=== PATIENT | male | born 1965 | race Caucasian/White ===

== ENCOUNTER 2021-01-04 14:04 | Emergency (ER) | payer BC ==
[2021-01-04 14:08] VITALS: TEMP 97.5
[2021-01-04] MEDS ORDERED: KETOROLAC 15 MG/ML 1 ML VIAL IVP STA (15:27)
[2021-01-04] MEDS ORDERED: SODIUM CHLORIDE 0.9% 1,000 ML IV ONE ×2 (15:27→15:29)
[2021-01-04] MEDS ORDERED: ACETAMINOPHEN TAB 500 MG TAB PO STA (15:29)
[2021-01-04 15:33] LABS: INR 0.9 (<1.2); Partial Thromboplastin Time 23.4 sec (22.0-30.0); Prothrombin Time 10.1 sec (9.0-12.0)
[2021-01-04 15:35] LABS: ALT 20 U/L (4-49); AST 31 U/L (17-59); African American GFR (CKD) >90 (>60 ml/min/1.73 sqM); Albumin 4.5 g/dL (3.5-5.0); Alkaline Phosphatase 51 U/L (38-126); Anion Gap 9 mmol/L; Blood Urea Nitrogen 12 mg/dL (9-20); Calcium 9.4 mg/dL (8.4-10.2); Carbon Dioxide 25 mmol/L (22-30); Chloride 101 mmol/L (98-107); Glucose 111 mg/dL (74-99); Non-African American GFR(CKD) >90 (>60 ml/min/1.73 sqM); Potassium 4.7 mmol/L (3.5-5.1); Sodium 135 mmol/L (137-145); Total Bilirubin 0.3 mg/dL (0.2-1.3); Total Protein 7.5 g/dL (6.3-8.2)
[2021-01-04 15:40] LABS: Basophils % (A) 1 %; Eosinophils # (A) 0.2 k/uL (0-0.7); Eosinophils % (A) 4 %; HCT 39.8 % (39.0-53.0); HGB 13.4 gm/dL (13.0-17.5); Lymphocytes # (A) 1.6 k/uL (1.0-4.8); Lymphocytes % (A) 33 %; MCH 32.2 pg (25.0-35.0); MCHC 33.6 g/dL (31.0-37.0); MCV 95.8 fL (80.0-100.0); Mean Platelet Volume 6.7; Monocytes # (A) 0.4 k/uL (0-1.0); Monocytes % (A) 9 %; Neutrophils # (A) 2.4 k/uL (1.3-7.7); Neutrophils % (A) 49 %; Platelet Count 416 k/uL (150-450); RBC 4.16 m/uL (4.30-5.90); RDW 12.9 % (11.5-15.5); WBC 4.9 k/uL (3.8-10.6)
--- NOTE | 2021-01-04 16:20 | XR ---
EXAMINATION TYPE: XR chest 1V portable DATE OF EXAM: 01/04/2021 COMPARISON: NONE HISTORY: Dizziness TECHNIQUE: FINDINGS: Heart and mediastinum are normal. Lungs are clear. Diaphragm is normal. Bony thorax is inta ct. There are chest leads. IMPRESSION: Normal chest
--- NOTE | 2021-01-04 16:36 | ED ---
General Adult HPI - General Chief complaint: Dizziness Stated complaint: Dizzy,Neck numbness Time Seen by Provider: 01/04/21 15:00 Source: patient, RN notes reviewed, old records reviewed Mode of arrival: wheelchair Limitations: no limitations - History of Present Illness Initial comments: Patient is a 55-year-old male with past medical history remarkable for no prior medical problems presents emergency Department complaining of acute onset of lightheadedness and suspected dehydration while at work earlier today. Patient states that he drank more coughing than normal and urinated frequently this morning. He has been working outside in the hot humid weather. He states that approximately 3 hours prior to arrival, the patient began having episodes of lightheadedness. Denies any chest pain or shortness of breath. Denies any abdominal pain, nausea, vomiting. Does endorse a very mild tension-like headache that feels like a belt tied around his head. He states this is approximately a 2 or 3 out of 10. He denies any fatigue or weakness. He states that the lightheadedness resolved mostly after he drank 2 glasses of water but was told to come to the emergency department for evaluation. He states he mostly feels back to his baseline. He denies any other acute complaint at this time. He denies any recent fevers, chills, sick contacts. States he did have 1 episode of loose stool earlier which is likely secondary to the coughing acc ording the patient. Was nonbloody. Has no other abdominal complaints at this time. - Related Data Previous Rx's Medication Instructions Recorded Ondansetron Odt [Zofran Odt] 8 mg PO Q8HR PRN #6 tab 08/11/15 Allergies Allergy/AdvReac Type Severity Reaction Status Date / Time prednisone Allergy c/o lower Verified 01/04/21 14:09 ext edema Review of Systems ROS Statement: Those systems with pertinent positive or pertinent negative responses have been documented in the HPI. Review of Systems: CONST: Denies fever EYES: Denies blurry vision ENT: Denies nasal congestion C/V: Denies Chest pain RESP: Denies shortness of breath GI: Denies abdominal pain : Denies dysuria SKIN: Denies rash. MSK: Denies joint pain. NEURO: Endorses headache ROS Other: All systems not noted in ROS Statement are negative. Past Medical History Past Medical History: No Reported History History of Any Multi-Drug Resistant Organisms: None Reported Past Surgical History: No Surgical Hx Reported Past Psychological History: No Psychological Hx Reported Smoking Status: Never smoker Past Alcohol Use History: None Reported Past Drug Use History: None Reported General Exam - General Exam Comments Initial Comments: General: Appears in no acute distress. HEAD: Normal with no signs of head trauma. EYES: PERRLA, EOMI, conjunctiva normal, no discharge. Pupils are 3 mm [place] aterally. ENT: Hearing grossly intact, normal oropharynx. Mildly dry mucous membrane. RESPIRATORY: Clear breath sounds bilaterally. No wheezes, rales, or rhonchi. C/V: Regular rate and rhythm. S1 and S2 auscultated, no edema, peripheral pulses 2+ and intact throughout ABD: Abd is soft, nontender, nondistended EXT: Normal range of motion, no obvious deformity SKIN: No rashes or lesions observed on exposed skin. NEURO: Alert and oriented x 4. Cranial nerves II-XII intact. No focal sensory or strength deficits. Cerebellar function is intact as evident by normal finger nose testing. Patient is able to ambulate without difficulty. GCS is 15. NIH scale is 0. Limitations: no limitations Course Vital Signs 01/04/21 01/04/21 14:05 16:49 Temperature 97.5 F L Pulse Rate 82 79 Respiratory 20 18 Rate Blood Pressure 148/93 129/79 O2 Sat by Pulse 99 99 Oximetry Medical Decision Making - Medical Decision Making Based on the patient's presentation and physical exam, I do believe that it was likely dehydrated, however cannot rule out the possibility of cardiac etiology at this time. He does have a mild tension-like headache with no neurological symptoms. He is still able to ambulate without difficulty. Therefore we will obtain a cardiac workup including troponin, EKG, chest x-ray. I believe one troponin was sufficient at this time as he presented multiple hours after symptom onset, and it is improving, and has never had chest pain. We also swabbed the patient for COVID as he did have an episode of diarrhea and it is the current COVID 19 pandemic. His no known sick contacts otherwise my suspicion is low. He was in agreement this plan. He will be symptomatically treated with 1 L fluid bolus as well as IV Toradol and by mouth Tylenol for pain management for his headache. He'll be connected to continuous cardiac biomarkers in the department. Patient's EKG shows no signs of acute ischemia. Patient's chest x-ray shows no acute cardiopulmonary process. COVID-19 swab is negative. Laboratory studies are remarkable for a negative troponin. The remainder of his labs are relatively unremarkable. On reevaluation, patient is feeling improved. His imaging without difficulty. States the lightheadedness is completely resolved as has his headache. He would like to go home at this time. Patient's heart sc ore's low therefore I do believe it is safe to discharge the patient home. I advised him to follow up with his PCP within the next 1-2 days. He was in agreement with the plan. I counseled the patient on proper hydration while at work and he expressed understanding. I instructed the patient to follow up with their PCP in the next 1-2 days . I explained that the patient should return to the emergency department if they experience any worsening symptoms. Strict return precautions were discussed with the patient. The patient expressed understanding of these instructions. I answer ed all questions that the patient had. The patient was discharged home in good condition with their prescriptions and follow up information. - Lab Data Result diagrams: 01/04/21 14:56 01/04/21 14:56 Lab Results 01/04/21 01/04/21 01/04/21 Range/Units 14:56 14:56 14:56 WBC 4.9 (3.8-10.6) k/uL RBC 4.16 L (4.30-5.90) m/uL Hgb 13.4 (13.0-17.5) gm/dL Hct 39.8 (39.0-53.0) % MCV 95.8 (80.0-100.0) fL MCH 32.2 (25.0-35.0) pg MCHC 33.6 (31.0-37.0) g/dL RDW 12.9 (11.5-15.5) % Plt Count 416 (150-450) k/uL MPV 6.7 Neutrophils % 49 % Lymphocytes % 33 % Monocytes % 9 % Eosinophils % 4 % Basophils % 1 % Neutrophils # 2.4 (1.3-7.7) k/uL Lymphocytes # 1.6 (1.0-4.8) k/uL Monocytes # 0.4 (0-1.0) k/uL Eosinophils # 0.2 (0-0.7) k/uL Basophils # 0.0 (0-0.2) k/uL PT 10.1 (9.0-12.0) sec INR 0.9 (<1.2) APTT 23.4 (22.0-30.0) sec Sodium 135 L (137-145) mmol/L Potassium 4.7 (3.5-5.1) mmol/L Chloride 101 (98-107) mmol/L Carbon Dioxide 25 (22-30) mmol/L Anion Gap 9 mmol/L BUN 12 (9-20) mg/dL Creatinine 0.80 (0.66-1.25) mg/dL Est GFR (CKD-EPI)AfAm >90 (>60 ml/min/1.73 sqM) Est GFR (CKD-EPI)NonAf >90 (>60 ml/min/1.73 sqM) Glucose 111 H (74-99) mg/dL Calcium 9.4 (8.4-10.2) mg/dL Total Bilirubin 0.3 (0.2-1.3) mg/dL AST 31 (17-59) U/L ALT 20 (4-49) U/L Alkaline Phosphatase 51 (38-126) U/L Troponin I (0.000-0.034) ng/mL Total Protein 7.5 (6.3-8.2) g/dL Albumin 4.5 (3.5-5.0) g/dL Coronavirus (PCR) (Not Detectd) 01/04/21 01/04/21 Range/Units 14:56 15:30 WBC (3.8-10.6) k/uL RBC (4.30-5.90) m/uL Hgb (13.0-17.5) gm/dL Hct (39.0-53.0) % MCV (80.0-100.0) fL MCH (25.0-35.0) pg MCHC (31.0-37.0) g/dL RDW (11.5-15.5) % Plt Count (150-450) k/uL MPV Neutrophils % % Lymphocytes % % Monocytes % % Eosinophils % % Basophils % % Neutrophils # (1.3-7.7) k/uL Lymphocytes # (1.0-4.8) k/uL Monocytes # (0-1.0) k/uL Eosinophils # (0-0.7) k/uL Basophils # (0-0.2) k/uL PT (9.0-12.0) sec INR (<1.2) APTT (22.0-30.0) sec Sodium (137-145) mmol/L Potassium (3.5-5.1) mmol/L Chloride (98-107) mmol/L Carbon Dioxide (22-30) mmol/L Anion Gap mmol/L BUN (9-20) mg/dL Creatinine (0.66-1.25) mg/dL Est GFR (CKD-EPI)AfAm (>60 ml/min/1.73 sqM) Est GFR (CKD-EPI)NonAf (>60 ml/min/1.73 sqM) Glucose (74-99) mg/dL Calcium (8.4-10.2) mg/dL Total Bilirubin (0.2-1.3) mg/dL AST (17-59) U/L ALT (4-49) U/L Alkaline Phosphatase (38-126) U/L Troponin I <0.012 (0.000-0.034) ng/mL Total Protein (6.3-8.2) g/dL Albumin (3.5-5.0) g/dL Coronavirus (PCR) Not Detected (Not Detectd) - EKG Data -: EKG Interpreted by Me EKG Comments: 12-lead Electrocardiogram Interpretation Note EKG was reviewed and interpreted by myself. 12-lead ECG performed at 1425 is interpreted by me as revealing normal sinus rhythm at a rate of 78 beats per minute. [place] is normal. [place] interval is 186 ms, QRS ration is 106 ms, QTc is 435 ms.. There were no ST or T wave abnormalities to suggest myocardial ischemia or injury. R wave progression across the precordium was satisfactory. By my interpretation this EKG is non-diagnostic for acute ischemia. Disposition Clinical Impression: Lightheadedness, Tension headache, Dehydration Disposition: HOME SELF-CARE Condition: Good Instructions (If sedation given, give patient instructions): Dehydration (ED) Is patient prescribed a controlled substance at d/c from ED?: No Referrals: None,Stated [Primary Care Provider] - 1-2 days
[2021-01-04 16:50] VITALS: BP 129/79; PULSE 79; RESP 18
== END 2021-01-04 16:49 | disposition home or self-care (01) ==
LOC: EC 14:04
DX: R42 Dizziness and giddiness (principal); G44.209 Tension-type headache, unspecified, not intractable; E86.0 Dehydration; Z20.822 Contact with and (suspected) exposure to COVID-19
CPT/HCPCS: 99284; 96374; 96361; 36415; 93005; 80053; 84484; 85025; 85610; 85730; 87635; 71045; J1885